=== PATIENT | male | born 1975 | race Caucasian/White ===

== ENCOUNTER 2017-12-09 09:10 | Day surgery (SDC) | payer BC ==
[~2017-12-09] VITALS: Ht 175.3 cm; Wt 85.4 kg
[~2017-12-09 09:10] MED LIST: CALCIUM CITRAT950 MG PO; EPIPEN 2-PAK1 MG/ML IM; OMNICEF 300MG300 MG; PREDNISONE10 MG PO; PRILOSEC 20MG20 MG PO; ZITHROMAX Z PA250 MG PO
[2017-12-09] MEDS ORDERED: PROBIOTIC-SUNMARK PO (09:22)
[2017-12-09 09:39] VITALS: BP 114/73; PULSE 72; TEMP 98.4
[2017-12-09 10:52] VITALS: BP 104/64; PULSE 81
== END 2017-12-09 11:50 | disposition home or self-care (01) ==
LOC: SDCO 09:10
DX: K21.9 Gastro-esophageal reflux disease without esophagitis (principal); K22.2 Esophageal obstruction; K22.70 Barrett's esophagus without dysplasia; Z88.0 Allergy status to penicillin
CPT/HCPCS: C1726; J2250; J2405; J3010; J7030

== ENCOUNTER → 2019-05-22 | Outpatient (CLI) | payer BC ==
[~2019-05-22] MED LIST changes: +PROBIOTIC-SUNMARK PO
== END ==
LOC: COL.RAD 08:04
DX: K22.2 Esophageal obstruction (principal)
CPT/HCPCS: A9541

== ENCOUNTER 2020-10-18 20:41 | Emergency (ER) | payer BC ==
[~2020-10-18] VITALS: Ht 175.3 cm; Wt 90.4 kg
[2020-10-18 20:46] VITALS: TEMP 98
[2020-10-18 21:21] LABS: BASO # 0.1 (0.0-0.2); BASO % 0.5 % (0.0-2.0); EOS # 0.4 (0.0-0.7); EOS % 4.3 % (0-4.0); GRAN # 5.7 (1.4-6.5); HEMATOCRIT 46.1 % (42.0-52.0); HEMOGLOBIN 16.8 g/dl (13.5-18.0); LYMPH # 2.6 (1.2-3.4); LYMPH % 28.1 % (20.0-51.0); MEAN CELL VOLUME 88 fl (80.0-100.0); MEAN CORPUSCULAR HEMOGLOBIN 32 pg (27.0-31.0); MEAN CORPUSCULAR HGB CONC 36 g/dl (33.0-37.0); MEAN PLATELET VOLUME 10.1 fl (7.4-10.4); MONO # 0.6 (0.1-0.6); MONO % 5.9 % (1.7-9.3); PLATELET COUNT 206 K/mm3 (130-400); RED BLOOD COUNT 5.27 M/mm3 (4.20-5.60); REDCELL DISTRIBUTION WIDTH-CV 11.9 % (11.5-14.5)
[2020-10-18 21:34] LABS: ALBUMIN 4.4 gm/dL (3.5-5.0); BILIRUBIN,TOTAL 0.9 mg/dL (0.0-1.0); CALCIUM 9.6 mg/dL (8.4-10.2); CREATININE, serum 1.17 (0.66-1.25); POTASSIUM 3.6 mmol/L (3.4-5.0); TOTAL PROTEIN 7.3 gm/dL (6.4-8.2)
[2020-10-18 23:43] VITALS: BP 113/74; PULSE 80
== END 2020-10-18 23:40 | disposition home or self-care (01) ==
LOC: COL.ER 20:41
PROVIDERS: Emergency Medicine
DX: T18.128A Food in esophagus causing other injury, initial encounter (principal); K29.70 Gastritis, unspecified, without bleeding; Z88.0 Allergy status to penicillin; Z88.1 Allergy status to other antibiotic agents
CPT/HCPCS: C9113; J1610; J2250; J2405; J2704; J7030

== ENCOUNTER 2020-12-12 08:48 | Day surgery (SDC) | payer BC ==
[~2020-12-12] VITALS: Ht 175.3 cm; Wt 86.9 kg
[2020-12-12 09:33] VITALS: BP 115/82; PULSE 74; TEMP 97.5
[2020-12-12 10:30] VITALS: BP 105/72; PULSE 74; TEMP 97.7
--- NOTE | 2020-12-12 10:30 | NUR ---
TO BAY #1 VIA CART FROM ENDO LAB, WALKED TO CHAIR, IN ROOM, NO C/O, TAKES WATER. CALL LIGHT IN REACH
[2020-12-12 10:45] VITALS: BP 109/87; PULSE 65
[2020-12-12 11:00] VITALS: BP 110/81; PULSE 64
--- NOTE | 2020-12-12 11:00 | NUR ---
HERE TO SEE PT AND . IV D'CD INTACT. REVIEWED DISCHARGE INST. WITH PT AND FOLLOWUP WITH PRECAUTIONS WITH VERBAL UNDERSTANDING. PT DISCHARGED AT 1130 VIA W/C TO CAR,
[2020-12-12 12:05] VITALS: BP 105/72; PULSE 77
== END 2020-12-12 11:30 | disposition home or self-care (01) ==
LOC: SDCO 08:48
DX: K22.2 Esophageal obstruction (principal); K22.70 Barrett's esophagus without dysplasia; Z88.0 Allergy status to penicillin; Z88.8 Allergy status to other drugs, medicaments and biological substances
CPT/HCPCS: J2704; J7030